=== PATIENT | male | born 1985 | race Caucasian/White ===

== ENCOUNTER 2018-12-26 19:17 | Inpatient (IN) | payer BC ==
[~2018-12-26] VITALS: Ht 208.3 cm; Wt 217.7 kg
[~2018-12-26 19:17] MED LIST: LISI-338 PO
--- NOTE | 2018-12-26 19:54 | PHYS DOC ---
Past Medical History Past Medical History: Depression, Gallstones, Hypertension Past Surgical History: No Surgical History, Other Additional Past Surgical Histo: rt knee Alcohol Use: None Drug Use: None Adult General Chief Complaint Chief Complaint: CHEST PAIN HPI HPI Patient is a 33 year old male with history of hypertension, gallstones, depression who presents with epigastric pain radiating to chest and right shoulder. Symptom onset was last evening. Symptoms been continuous throughout the day and associated with shortness of breath and nausea. No vomiting. No fever chills or sweats. No leg pain or swelling. No history DVT or PE. No diarrhea. No blood in stools dark tarry stools. No other acute symptoms or complaints. Patient had similar episode one month ago, which resolved on its own. He states he was seen in the emergency department approximately 18 months ago and diagnosed with gallstones has not had outpatient follow-up since that time. Denies routine drugs and alcohol use. [] Review of Systems Review of Systems ROS as per HPI All other systems were reviewed and found to be within normal limits, except as documented in this note. Current Medications Current Medications Current Medications Medications (Trade) Dose Ordered Sig/Skye Start Time Stop Time Status Last Admin Dose Admin Enoxaparin Sodium (Lovenox 100mg Syringe) 200 mg 1X ONCE 12/27/18 00:45 12/27/18 00:46 Fentanyl Citrate (Fentanyl 2ml Vial) 75 mcg 1X ONCE 12/26/18 20:00 12/26/18 20:01 DC 12/26/18 19:56 75 MCG Info (CONTRAST GIVEN -- Rx MONITORING) 1 each PRN DAILY PRN 12/26/18 21:30 12/28/18 21:29 Iohexol (Omnipaque 350 Mg/ml) 100 ml 1X ONCE 12/26/18 21:30 12/26/18 21:31 DC 12/26/18 21:45 100 ML Ondansetron HCl (Zofran) 4 mg 1X ONCE 12/26/18 20:00 12/26/18 20:01 DC 12/26/18 19:55 4 MG Allergies Allergies Allergies Coded Allergies Type Severity Reaction Last Updated Verified No Known Drug Allergies 04/22/15 No Physical Exam Physical Exam Constitutional: Well developed, well nourished, no acute distress, non-toxic appearance. [] HENT: Normocephalic, atraumatic, bilateral external ears normal, oropharynx moist, no oral exudates, nose normal. [] Eyes: PERRLA, EOMI, conjunctiva normal, no discharge. [] Neck: Normal range of motion, no tenderness, supple, no stridor. [] Cardiovascular: Tachycardic, no murmur [] Lungs & Thorax: Bilateral breath sounds clear to auscultation [] Abdomen: Bowel sounds normal, soft, epigastric pain, right upper quadrant, obesity compromising exam.. [] Skin: Warm, dry, no erythema, no rash. [] Back: No tenderness, no CVA tenderness. [] Extremities: No tenderness, no cyanosis, negative Homans signs.[] Neurologic: Alert and oriented X 3, normal motor function, normal sensory function, no focal deficits noted. [] Psychologic: Affect normal, judgement normal, mood normal. [] Current Patient Data Vital Signs Vital Signs Date Time Temp Pulse Resp B/P (MAP) Pulse Ox O2 Delivery O2 Flow Rate FiO2 12/26/18 22:00 106 122/63 (82) 12/26/18 21:08 20 96 Room Air 12/26/18 19:31 98.4 98.4 Lab Values Laboratory Tests Test 12/26/18 19:40 12/26/18 20:13 White Blood Count 11.1 x10^3/uL (4.0-11.0) H Red Blood Count 5.00 x10^6/uL (4.30-5.70) Hemoglobin 14.6 g/dL (13.0-17.5) Hematocrit 42.8 % (39.0-53.0) Mean Corpuscular Volume 86 fL (79-100) Mean Corpuscular Hemoglobin 29 pg (25-35) Mean Corpuscular Hemoglobin Concent 34 g/dL (31-37) Red Cell Distribution Width 13.9 % (11.5-14.5) Platelet Count 222 x10^3/uL (140-400) Neutrophils (%) (Auto) 86 % (31-73) H Lymphocytes (%) (Auto) 6 % (24-48) L Monocytes (%) (Auto) 6 % (0-9) Eosinophils (%) (Auto) 1 % (0-3) Basophils (%) (Auto) 0 % (0-3) Neutrophils # (Auto) 9.5 x10^3uL (1.8-7.7) H Lymphocytes # (Auto) 0.7 x10^3/uL (1.0-4.8) L Monocytes # (Auto) 0.7 x10^3/uL (0.0-1.1) Eosinophils # (Auto) 0.1 x10^3/uL (0.0-0.7) Basophils # (Auto) 0.0 x10^3/uL (0.0-0.2) Segmented Neutrophils % 82 % (35-66) H Band Neutrophils % 2 % (0-9) Lymphocytes % 8 % (24-48) L Monocytes % 7 % (0-10) Eosinophils % 1 % (0-5) Platelet Estimate Adequate (ADEQUATE) D-Dimer (Lily) 1.06 ug/mlFEU (0.00-0.50) H Sodium Level 139 mmol/L (136-145) Potassium Level 3.8 mmol/L (3.5-5.1) Chloride Level 101 mmol/L (98-107) Carbon Dioxide Level 29 mmol/L (21-32) Anion Gap 9 (6-14) Blood Urea Nitrogen 12 mg/dL (8-26) Creatinine 0.9 mg/dL (0.7-1.3) Estimated GFR (Cockcroft-Gault) 96.0 Glucose Level 146 mg/dL (70-99) H Calcium Level 8.6 mg/dL (8.5-10.1) Troponin I Quantitative < 0.017 ng/mL (0.000-0.055) Lipase 141 U/L (73-393) Urine Opiates Screen Neg (NEG) Urine Methadone Screen Neg (NEG) Urine Barbiturates Neg (NEG) Urine Phencyclidine Screen Neg (NEG) Urine Amphetamine/Methamphetamine Neg (NEG) Urine Benzodiazepines Screen Neg (NEG) Urine Cocaine Screen Neg (NEG) Urine Cannabinoids Screen Neg (NEG) Urine Ethyl Alcohol Neg (NEG) Laboratory Tests 12/26/18 19:40 Laboratory Tests 12/26/18 19:40 EKG EKG [EKG: Tachycardia] Radiology/Procedures Radiology/Procedures [Chest x-ray:nad CT chest: Nondiagnostic for evaluation of PE per radiology report CT abdomen pelvis: Increased mesenteric lymph nodes and inflammation nonspecific ] Course & Med Decision Making Course & Med Decision Making Pertinent Labs and Imaging studies reviewed. (See chart for details) [Nonspecific chest pain, persistent tachycardia with elevated d-dimer and mistimed CT angiogram chest, unable to r/o PE. Lovenox given, will admit with anticipated V/Q scan in a.m. What appears to be incidental findings of mesenteric inflammation/adenitis, mild discomfort on exam. Dr. Pan to admit for Dr. Leyva. Courtesy bridge orders provided.] Dragon Disclaimer Dragon Disclaimer This electronic medical record was generated, in whole or in part, using a voice recognition dictation system. Departure Departure Impression: Primary Impression: D-dimer, elevated Additional Impressions: Chest pain Nonspecific mesenteric adenitis Disposition: ADMITTED INPATIENT Admitting Physician: Janette Pan Condition: STABLE Referrals: NIYAH PA MD (PCP) Problem Qualifiers MARIA FERNANDA SCHULTZ DO Dec 26, 2018 19:54
[2018-12-26 19:55] LABS: BASO % 0 % (0-3); EOS # 0.1 x10^3/uL (0.0-0.7); EOS % 1 % (0-3); HEMATOCRIT 42.8 % (39.0-53.0); HEMOGLOBIN 14.6 g/dL (13.0-17.5); LYMPH # 0.7 x10^3/uL (1.0-4.8); LYMPH % 6 % (24-48); MEAN CORPUSCULAR HEMOGLOBIN 29 pg (25-35); MEAN CORPUSCULAR HGB CONC 34 g/dL (31-37); MEAN CORPUSCULAR VOLUME 86 fL (79-100); MONO # 0.7 x10^3/uL (0.0-1.1); MONO % 6 % (0-9); NEUT # 9.5 x10^3uL (1.8-7.7); NEUT % 86 % (31-73); PLATELET COUNT 222 x10^3/uL (140-400); RED CELL DISTRIBUTION WIDTH 13.9 % (11.5-14.5); WHITE BLOOD COUNT 11.1 x10^3/uL (4.0-11.0)
[2018-12-26 19:57] LABS: CALCIUM 8.6 mg/dL (8.5-10.1); CREATININE 0.9 mg/dL (0.7-1.3); POTASSIUM 3.8 mmol/L (3.5-5.1)
[2018-12-26] MEDS ORDERED: ONDANSETRON PF 4 MG/2 ML VIAL. IV ONE (20:00)
[2018-12-26] MEDS ORDERED: fentaNYL PF VIAL 100 MCG/2 ML VIAL IV ONE (20:00)
--- NOTE | 2018-12-26 20:07 | RAD ---
PROCEDURE: CHEST AP ONLY CLINICAL INDICATION: Chest pain COMPARISON: None FINDINGS: No pneumothorax identified. Cardiac and mediastinal contours unremarkable. No pulmonary consolidation or acute airspace disease. No acute osseous abnormalities identified. IMPRESSION: No pulmonary consolidation or acute airspace disease. Electronically signed by: Wil Bennett DO (12/26/2018 8:04 PM) [facility]
[2018-12-26 20:17] LABS: % BANDS 2 % (0-9); % EOS 1 % (0-5); % LYMPHS 8 % (24-48); % MONOS 7 % (0-10); % SEGS 82 % (35-66); PLT ESTIMATE ADEQUATE (ADEQUATE)
[2018-12-26 20:27] LABS: AMPHETAMINE/METHAMPHETAMINE NEG (NEG); BARBITURATES NEG (NEG); BENZODIAZEPINES NEG (NEG); CANNABINOIDS NEG (NEG); COCAINE NEG (NEG); METHADONE NEG (NEG); OPIATES NEG (NEG); PHENCYCLIDINE NEG (NEG)
[2018-12-26] MEDS ORDERED: CONTRAST GIVEN. MC PRN (21:30)
[2018-12-26] MEDS ORDERED: IOHEXOL 350 MG/ML 100 ML VIAL. IV ONE (21:30)
--- NOTE | 2018-12-26 23:15 | RAD ---
EXAM: CT chest with contrast - pulmonary embolus protocol CLINICAL HISTORY: CHEST PAIN COMPARISON: Chest x-ray 12/26/2018 TECHNIQUE: CT of the chest following the administration of intravenous contrast during the pulmonary arterial phase. Axial, coronal and sagittal reformatted images were generated including MIP images. ---PQRS compliance statement - One or more of the following individualized dose reduction techniques were utilized for this study: 1. Automated exposure control 2. Adjustment of the mA and/or kV according to patient size 3. Use of iterative reconstruction technique--- FINDINGS: CHEST: Diagnostic quality: Suboptimal contrast bolus timing limits evaluation for acute pulmonary embolus.. Pulmonary emboli: Within the limitations of phase of contrast, no definite large central pulmonary embolus is identified. Distal evaluation is limited. Right heart strain: None Pulmonary arteries: Normal in caliber. The heart is mildly enlarged. No pericardial effusion. No pleural effusion or pneumothorax. No axillary lymphadenopathy. Enlarged left thyroid measures approximately 8.6 x 5.4 cm, resulting in mild rightward deviation of the trachea with mass effect. No mediastinal or hilar lymphadenopathy by size criteria. No axillary lymphadenopathy. Vague groundglass opacities bilaterally most prominent dependently, likely atelectasis although infectious or inflammatory process may have similar appearance. No suspicious lung nodule or mass. Visualized Upper abdomen: Please see full report of the abdomen and pelvis on the dedicated CT abdomen and pelvis report. Bones: Degenerative changes of the spine are seen. No definite aggressive osseous lesion is seen. IMPRESSION: 1. Evaluation for pulmonary embolus is markedly limited by phase of contrast. Within these constraints no definite central pulmonary embolus is seen. 2. Large left thyroid enlargement versus mass, resulting in mass effect on the trachea with rightward shift and narrowing. This can be further assessed by ultrasound. 3. Vague groundglass opacity bilaterally likely atelectasis given low lung volumes however infectious/inflammatory process may have similar appearance. Electronically signed by: Wilton Camarena MD (12/26/2018 11:12 PM) [facility]
--- NOTE | 2018-12-26 23:26 | RAD ---
EXAM: CT Abdomen and Pelvis with IV contrast CLINICAL HISTORY: CHEST PAIN, +dd, nausea, vomiting and diarrhea COMPARISON: none TECHNIQUE: Helical CT of the abdomen and pelvis was performed following the administration of intravenous contrast. Axial, coronal and sagittal reformatted images were generated. PQRS compliance statement - One or more of the following individualized dose reduction techniques were utilized for this study: 1. Automated exposure control 2. Adjustment of the mA and/or kV according to patient size 3. Use of iterative reconstruction technique FINDINGS: Lower chest: Please see dedicated CT chest report for full lung findings. Abdomen and Pelvis: Hepatic hypoattenuation be seen with hepatic steatosis. Liver is enlarged measuring 25 cm in length. Spleen is also enlarged measuring 15 cm in length. Gallstones are seen within the gallbladder. No biliary ductal dilatation. Pancreas is unremarkable. A 1.2 cm left adrenal nodule is incidentally seen. Right adrenal gland is grossly unremarkable. Symmetric nephrograms. No focal renal lesion. No hydronephrosis or hydroureter. Bladder is unremarkable. No abnormal small or large bowel dilatation. Moderate colonic stool content is seen. There is diffuse fat infiltration about the mesenteric root most prominent at the level between the SMA and CHEMO with several small/prominent mesenteric lymph nodes, possibly reactive. For example a sales representative sales manager mesenteric lymph node measures 5 mm in short axis. No abdominal or pelvic lymphadenopathy by size criteria.Small fat-containing periumbilical hernia. Aorta is normal in caliber throughout. No abdominal or pelvic ascites. Bones: Multilevel degenerative changes of the spine are seen. Straightening of the normal lumbar lordosis. No significant spondylolisthesis. IMPRESSION: 1. Mesenteric infiltration with prominent associated lymph nodes is nonspecific. This may be related to infectious/inflammatory process, mesenteric panniculitis, or malignancy. Consider short-term follow-up CT to assess for interval change. 2. No evidence for bowel obstruction. 3. Hepatic hypoattenuation may be seen with hepatic steatosis. Hepatosplenomegaly. 4. Small fat-containing periumbilical hernia. Electronically signed by: Wilton Camarena MD (12/26/2018 11:23 PM) [facility]
--- NOTE | 2018-12-27 01:30 | NUR ---
The patient, CICI IVORY, 33 y/o, M admitted by Shahid MARKHAM MD, was given written information regarding hospital policies, unit procedures and contact persons. Valuables were checked and left with the patient.
[2018-12-27 01:35] VITALS: BP 136/74
[2018-12-27] MEDS ORDERED: MORPHINE SULFATE 4 MG/ML VIAL. IV PRN (02:00)
[2018-12-27] MEDS ORDERED: ONDANSETRON PF 4 MG/2 ML VIAL. IV PRN (02:00)
[2018-12-27] MEDS ORDERED: LISI10TA2 PO (02:26)
[2018-12-27] MEDS ORDERED: CITA10TA4 PO (02:26)
[2018-12-27 03:00] VITALS: BP 102/51
[2018-12-27 07:00] VITALS: BP 138/86
--- NOTE | 2018-12-27 12:08 | EKG ---
[facility] [address] [place] [address] Test Date: 2018-12-26 Test Time: 19:26:52 Pat Name: CICI IVORY Department: Room: [facility] Gender: M [employer]: : [id number] Requested By: Shahid MARKHAM Order Number: [id number] Reading MD: Tre Munguia Measurements Intervals [place] Rate: 129 P: 0 VT: 158 QRS: 14 QRSD: 98 T: 39 QT: 300 QTc: 441 Interpretive Statements SINUS TACHYCARDIA Electronically Signed On 01-05-2019 10:38:06 GUEST LAUNDRY ATTENDANT by Tre Munguia
[2018-12-27] MEDS ORDERED: LISI1TAB3 PO (12:52)
--- NOTE | 2018-12-27 12:58 | PDOC ---
PROGRESS NOTES Subjective Subjective Patient denies any chest pain or SOA. Feels ready to go home today. Objective Objective Vital Signs Date Time Temp Pulse Resp B/P (MAP) Pulse Ox O2 Delivery O2 Flow Rate FiO2 12/27/18 07:00 98.7 100 20 138/86 (103) 96 Room Air 98.7 Intake and Output 12/27/18 06:59 Intake Total 150 ml Balance 150 ml Intake Oral 150 ml # Voids 1 Physical Exam Abdomen: Normal bowel sounds, Soft, No tenderness Heart: Regular rate Extremities: No edema General: Alert, Oriented X3, No acute distress Lungs: Other (BS distant due to habitus but CTA) Assessment Assessment Problems Medical Problems: (1) Chest pain Status: Acute (2) D-dimer, elevated Status: Acute (3) Nonspecific mesenteric adenitis Status: Acute Plan Plan of Care 1. Chest pain - resolved. First Troponin negative, repeat pending now. CTA chest suboptimal but negative for PE. Patient not hypoxic on RA. Home today if repeat troponin negative. 2. HTN - continue home medication. 3. tachycardia - resolving. 4. cholelithiasis - patient already aware that he has gallstones, denies symptoms from them. CT showed fatty liver. Some scant nonspecific mesenteric adenitis seen, no symptoms per patient. Comment Review of Relevant I have reviewed the following items jacqueline (where applicable) has been applied. Labs Laboratory Tests Test 12/26/18 19:40 12/26/18 20:13 White Blood Count 11.1 x10^3/uL (4.0-11.0) Red Blood Count 5.00 x10^6/uL (4.30-5.70) Hemoglobin 14.6 g/dL (13.0-17.5) Hematocrit 42.8 % (39.0-53.0) Mean Corpuscular Volume 86 fL (79-100) Mean Corpuscular Hemoglobin 29 pg (25-35) Mean Corpuscular Hemoglobin Concent 34 g/dL (31-37) Red Cell Distribution Width 13.9 % (11.5-14.5) Platelet Count 222 x10^3/uL (140-400) Neutrophils (%) (Auto) 86 % (31-73) Lymphocytes (%) (Auto) 6 % (24-48) Monocytes (%) (Auto) 6 % (0-9) Eosinophils (%) (Auto) 1 % (0-3) Basophils (%) (Auto) 0 % (0-3) Neutrophils # (Auto) 9.5 x10^3uL (1.8-7.7) Lymphocytes # (Auto) 0.7 x10^3/uL (1.0-4.8) Monocytes # (Auto) 0.7 x10^3/uL (0.0-1.1) Eosinophils # (Auto) 0.1 x10^3/uL (0.0-0.7) Basophils # (Auto) 0.0 x10^3/uL (0.0-0.2) Segmented Neutrophils % 82 % (35-66) Band Neutrophils % 2 % (0-9) Lymphocytes % 8 % (24-48) Monocytes % 7 % (0-10) Eosinophils % 1 % (0-5) Platelet Estimate Adequate (ADEQUATE) D-Dimer (Lily) 1.06 ug/mlFEU (0.00-0.50) Sodium Level 139 mmol/L (136-145) Potassium Level 3.8 mmol/L (3.5-5.1) Chloride Level 101 mmol/L (98-107) Carbon Dioxide Level 29 mmol/L (21-32) Anion Gap 9 (6-14) Blood Urea Nitrogen 12 mg/dL (8-26) Creatinine 0.9 mg/dL (0.7-1.3) Estimated GFR (Cockcroft-Gault) 96.0 Glucose Level 146 mg/dL (70-99) Calcium Level 8.6 mg/dL (8.5-10.1) Troponin I Quantitative < 0.017 ng/mL (0.000-0.055) Lipase 141 U/L (73-393) Urine Opiates Screen Neg (NEG) Urine Methadone Screen Neg (NEG) Urine Barbiturates Neg (NEG) Urine Phencyclidine Screen Neg (NEG) Urine Amphetamine/Methamphetamine Neg (NEG) Urine Benzodiazepines Screen Neg (NEG) Urine Cocaine Screen Neg (NEG) Urine Cannabinoids Screen Neg (NEG) Urine Ethyl Alcohol Neg (NEG) Laboratory Tests Test 12/26/18 19:40 12/26/18 20:13 White Blood Count 11.1 x10^3/uL (4.0-11.0) Red Blood Count 5.00 x10^6/uL (4.30-5.70) Hemoglobin 14.6 g/dL (13.0-17.5) Hematocrit 42.8 % (39.0-53.0) Mean Corpuscular Volume 86 fL (79-100) Mean Corpuscular Hemoglobin 29 pg (25-35) Mean Corpuscular Hemoglobin Concent 34 g/dL (31-37) Red Cell Distribution Width 13.9 % (11.5-14.5) Platelet Count 222 x10^3/uL (140-400) Neutrophils (%) (Auto) 86 % (31-73) Lymphocytes (%) (Auto) 6 % (24-48) Monocytes (%) (Auto) 6 % (0-9) Eosinophils (%) (Auto) 1 % (0-3) Basophils (%) (Auto) 0 % (0-3) Neutrophils # (Auto) 9.5 x10^3uL (1.8-7.7) Lymphocytes # (Auto) 0.7 x10^3/uL (1.0-4.8) Monocytes # (Auto) 0.7 x10^3/uL (0.0-1.1) Eosinophils # (Auto) 0.1 x10^3/uL (0.0-0.7) Basophils # (Auto) 0.0 x10^3/uL (0.0-0.2) Segmented Neutrophils % 82 % (35-66) Band Neutrophils % 2 % (0-9) Lymphocytes % 8 % (24-48) Monocytes % 7 % (0-10) Eosinophils % 1 % (0-5) Platelet Estimate Adequate (ADEQUATE) D-Dimer (Lily) 1.06 ug/mlFEU (0.00-0.50) Sodium Level 139 mmol/L (136-145) Potassium Level 3.8 mmol/L (3.5-5.1) Chloride Level 101 mmol/L (98-107) Carbon Dioxide Level 29 mmol/L (21-32) Anion Gap 9 (6-14) Blood Urea Nitrogen 12 mg/dL (8-26) Creatinine 0.9 mg/dL (0.7-1.3) Estimated GFR (Cockcroft-Gault) 96.0 Glucose Level 146 mg/dL (70-99) Calcium Level 8.6 mg/dL (8.5-10.1) Troponin I Quantitative < 0.017 ng/mL (0.000-0.055) Lipase 141 U/L (73-393) Urine Opiates Screen Neg (NEG) Urine Methadone Screen Neg (NEG) Urine Barbiturates Neg (NEG) Urine Phencyclidine Screen Neg (NEG) Urine Amphetamine/Methamphetamine Neg (NEG) Urine Benzodiazepines Screen Neg (NEG) Urine Cocaine Screen Neg (NEG) Urine Cannabinoids Screen Neg (NEG) Urine Ethyl Alcohol Neg (NEG) Medications Current Medications Fentanyl Citrate (Fentanyl 2ml Vial) 75 mcg 1X ONCE IV Last administered on at 19:56; Start 12/26/18 at 20:00; Stop 12/26/18 at 20:01; Status DC Ondansetron HCl (Zofran) 4 mg 1X ONCE IV Last administered on 12/26/18at 19:55 ; Start 12/26/18 at 20:00; Stop 12/26/18 at 20:01; Status DC Iohexol (Omnipaque 350 Mg/ml) 100 ml 1X ONCE IV Last administered on at 21:45; Start 12/26/18 at 21:30; Stop 12/26/18 at 21:31; Status DC Info (CONTRAST GIVEN -- Rx MONITORING) 1 each PRN DAILY PRN MC SEE COMMENTS; Start 12/26/18 at 21:30; Stop 12/28/18 at 21:29 Enoxaparin Sodium (Lovenox 100mg Syringe) 200 mg 1X ONCE SQ Last administered on 12/27/18at 00:46; Start 12/27/18 at 00:45; Stop 12/27/18 at 00:46; Status DC Morphine Sulfate (Morphine Sulfate) 4 mg PRN Q4HRS PRN IV pain; Start 12/27/18 at 02:00 Ondansetron HCl (Zofran) 4 mg PRN Q4HRS PRN IV nausea; Start 12/27/18 at 02:00 Citalopram Hydrobromide (CeleXA) 10 mg DAILY PO ; Start 12/28/18 at 09:00 Lisinopril (Prinivil) 10 mg DAILY PO ; Start 12/28/18 at 09:00 Active Scripts Active Lisinopril-Hctz 10-12.5 Mg Tab (Lisinopril/Hydrochlorothiazide) 1 Each Tablet 1 Tab PO DAILY Reported Citalopram Hbr (Citalopram Hydrobromide) 10 Mg Tablet 1 Tab PO DAILY Vitals/I & O Vital Sign - Last 24 Hours 12/26/18 12/26/18 12/26/18 12/26/18 19:31 19:56 19:57 20:13 Temp 98.4 98.4 Pulse 130 126 118 Resp 22 20 20 20 B/P (MAP) 144/89 (107) 130/66 (87) 141/63 (89) Pulse Ox 97 95 95 95 O2 Delivery Room Air Room Air Room Air 12/26/18 12/26/18 12/26/18 12/26/18 20:38 21:08 22:00 23:00 Pulse 112 108 106 104 Resp 20 20 B/P (MAP) 127/58 (81) 119/56 (77) 122/63 (82) 126/56 (79) Pulse Ox 95 96 96 O2 Delivery Room Air Room Air 12/26/18 12/27/18 12/27/18 12/27/18 23:30 00:00 00:39 01:00 Pulse 108 110 116 108 B/P (MAP) 130/76 (94) 118/80 (93) 113/67 (82) 114/56 (75) Pulse Ox 95 98 98 O2 Delivery Room Air 12/27/18 12/27/18 12/27/18 12/27/18 01:35 02:29 03:00 07:00 Temp 99.7 98.4 98.7 99.7 98.4 98.7 Pulse 108 99 100 Resp 18 18 20 B/P (MAP) 136/74 (94) 102/51 (68) 138/86 (103) Pulse Ox 93 91 96 O2 Delivery Room Air Room Air Room Air Room Air Intake and Output 12/26/18 12/26/18 12/27/18 14:59 22:59 06:59 Intake Total 150 ml Balance 150 ml YOHANNES GREENE MD Dec 27, 2018 12:58
[2018-12-27 13:01] LABS: BASO % 0 % (0-3); EOS # 0.1 x10^3/uL (0.0-0.7); EOS % 2 % (0-3); HEMATOCRIT 42.8 % (39.0-53.0); HEMOGLOBIN 14.4 g/dL (13.0-17.5); LYMPH # 1.5 x10^3/uL (1.0-4.8); LYMPH % 21 % (24-48); MEAN CORPUSCULAR HEMOGLOBIN 29 pg (25-35); MEAN CORPUSCULAR HGB CONC 34 g/dL (31-37); MEAN CORPUSCULAR VOLUME 86 fL (79-100); MONO # 0.6 x10^3/uL (0.0-1.1); MONO % 8 % (0-9); NEUT # 4.8 x10^3uL (1.8-7.7); NEUT % 69 % (31-73); PLATELET COUNT 190 x10^3/uL (140-400); RED BLOOD COUNT 4.98 x10^6/uL (4.30-5.70); RED CELL DISTRIBUTION WIDTH 13.9 % (11.5-14.5)
[2018-12-27 13:16] LABS: ALBUMIN 3.6 g/dL (3.4-5.0); ALBUMIN/GLOBULIN RATIO 1.2 (1.0-1.7); CALCIUM 8.2 mg/dL (8.5-10.1); CREATININE 0.8 mg/dL (0.7-1.3); POTASSIUM 3.8 mmol/L (3.5-5.1); TOTAL BILIRUBIN 1.2 mg/dL (0.2-1.0); TOTAL PROTEIN 6.7 g/dL (6.4-8.2)
--- NOTE | 2018-12-27 13:23 | SSS ---
ADMIT DATE: 12/27/2018 CHIEF COMPLAINT: Left-sided chest pain. HISTORY OF PRESENT ILLNESS: The patient is a 33-year-old male who presented to the Emergency Room with the above complaint. He reported the onset of pain in his left chest earlier in the day. It persisted for several hours and was accompanied by some shortness of breath, so he came to the Emergency Room. Initial evaluation there included a troponin, which was completely normal and an EKG that is reported to be without acute ischemic changes. A CT angiogram of the chest was done, but the contrast was mistimed so the results were suboptimal, however, no pulmonary embolism was seen, and the patient was admitted for further care. PAST MEDICAL HISTORY: Hypertension, chronic anxiety, cholelithiasis, morbid obesity. HOME MEDICATIONS: Lisinopril/hydrochlorothiazide 10/12.5 one daily, citalopram 10 mg daily. PAST SURGICAL HISTORY: None on chart. FAMILY HISTORY: Noncontributory. SOCIAL HISTORY: The patient does not smoke cigarettes or drink alcohol to excess. He is single. REVIEW OF SYSTEMS: The patient denies fever or chills. He had some recent cough and chest congestion, but this seems to be improving. He denies other episodes of chest pain. He denies epigastric or right upper quadrant pain. He denies lower abdominal pain or problems with his stools. He denies lower extremity edema. PHYSICAL EXAMINATION: GENERAL: The patient is alert and oriented x 3, sitting up comfortably in bed, in no acute distress. HEENT: PERRL, EOMI, sclerae clear. Oropharynx: Mucous membranes moist. NECK: Supple, without lymphadenopathy. CHEST: Breath sounds distant due to body habitus, but otherwise clear to auscultation. CARDIOVASCULAR: Regular rhythm. ABDOMEN: Soft, nontender, normoactive bowel sounds are present. EXTREMITIES: Without edema. HOSPITAL COURSE: The patient's chest pain resolved in the Emergency Room and has not recurred. He remains with stable vital signs and is not hypoxic on room air. A repeat troponin was negative. Outpatient cardiac evaluation can be considered if symptoms recur. CT of the abdomen and pelvis showed a mild nonspecific mesenteric adenitis, gallstones were seen as well as fatty liver. The patient has no abdominal pain or other complaints. He is aware that he may some day need his gallbladder removed if it starts to cause problems. He is advised a low fat diet to help with this. The patient was tachycardic on admission and this has gradually improved; some of this may be related to his chronic anxiety as his heart rate has been mildly elevated when seen on office visits also. This will be followed as an outpatient. FINAL DIAGNOSES: 1. Musculoskeletal chest pain. 2. Hypertension. 3. Cholelithiasis. 4. Tachycardia. DISCHARGE MEDICATIONS: Remain the same as at admission. FOLLOWUP: With Dr. Leyva within 2 weeks. YOHANNES GREENE MD DR: JAYMIE/edward JOB#: [id number] / [id number] LATIA
--- NOTE | 2018-12-27 16:23 | NUR ---
Discharge Note: CICI IVORY ROCHELLE Discharge instructions and discharge home medications reviewed with Patient and a copy given. All questions have been answered and understanding verbalized. The following instructions and handouts were given: PE, chest pain Discontinued lines and drains:peripheral IV Patient discharged to Home or Self Care with Friend via Ambulated
[2018-12-28] MEDS ORDERED: LISINOPRIL 10 MG TABLET PO SCH (09:00)
[2018-12-28] MEDS ORDERED: CITALOPRAM 10 MG TABLET. PO SCH (09:00)
== END 2018-12-27 14:00 | disposition home or self-care (01) | DRG 313 ==
LOC: ER 19:17 → 5 NORTH 12-27 01:32
PROVIDERS: ADMIT Family Medicine; ATTEND Family Medicine
DX: R07.89 Other chest pain (principal); Z68.43 Body mass index [BMI] 50.0-59.9, adult; K80.20 Calculus of gallbladder without cholecystitis without obstruction; I88.0 Nonspecific mesenteric lymphadenitis; I10 Essential (primary) hypertension; F32.9 Major depressive disorder, single episode, unspecified; K76.0 Fatty (change of) liver, not elsewhere classified; F41.9 Anxiety disorder, unspecified; E66.01 Morbid (severe) obesity due to excess calories
CPT/HCPCS: 36415; 71045; 71275; 74177; 80048; 80053; 80307; 83690; 84484; 85007; 85025; 85379; 93005; 96372; 96374; J1650; J2405; J3010; Q9967; 99285-25